=== PATIENT | female | born 1980 | race Caucasian/White ===

== ENCOUNTER → 2020-09-15 09:52 | Outpatient (CLI) | payer OTHER, SELFPAY ==
[2020-09-15 11:15] LABS: Hematocrit 43.6 % (36-46); Hemoglobin 14.5 g/dL (12.0-16.0); Mean Corpuscular HGB Conc 33.2 % (30-36); Mean Corpuscular Hemoglobin 30.3 PG (26-34); Mean Corpuscular Volume 91.1 fL (80-100); Platelet Count 303 X10^3/uL (150-400); Red Blood Cell Count 4.79 X10^6/uL (4.0-5.2); Red Cell Distribution Width 12.6 % (11.6-14.8); White Blood Cell Count 7.7 X10^3/uL (4.5-11.0)
[2020-09-15 11:47] LABS: Alanine Aminotransferase 31 IU/L (<35); Albumin 4.4 g/dL (3.5-5.0); Albumin Globulin Ratio 1.8 (1.0-2.8); Alkaline Phosphatase 60 U/L (38-126); Aspartate Aminotransferase 27 IU/L (14-36); BUN Creatinine Ratio 19.1 (6-22); Bilirubin Total 0.8 mg/dL (0.2-1.3); Blood Urea Nitrogen 13 mg/dL (7-17); Calcium 9.1 mg/dL (8.4-10.2); Carbon Dioxide 27 mmol/L (22-32); Chloride 107 mmol/L (98-107); Cholesterol 172 mg/dL (140-199); Estimated Glomerular Filt Rate > 60.0 mL/min (>60); Globulin 2.5 g/dL (1.7-4.1); Glucose 92 mg/dL (70-100); HDL Cholesterol 87 mg/dL (40-60); HEMOLYSIS < 15 (0-50); LDL Cholesterol Calculated 70 mg/dL (<100); Potassium 4.8 mmol/L (3.4-5.1); Sodium 138 mmol/L (137-145); Total Protein 6.9 g/dL (6.3-8.2); Triglycerides 73 mg/dL (35-150)
== END ==
PROVIDERS: Family Provider Family Medicine; PCP Nurse Practitioner Family; Referring Provider Nurse Practitioner Family; Visit Provider Nurse Practitioner Family
DX: Z00.00 Encounter for general adult medical examination without abnormal findings (principal); Z13.6 Encounter for screening for cardiovascular disorders
CPT/HCPCS: 36415; 80053; 80061; 85027

== ENCOUNTER 2021-05-14 06:58 | Emergency (ER) | payer OTHER, SELFPAY ==
[2021-05-14] VITALS (11 sets, daily range): BP systolic 118–129; BP diastolic 60–80; PULSE 47–63; RESP 16–29; TEMP 36.8; O2SAT 95–100; BMI 30.1
--- NOTE | 2021-05-14 07:00 | DI.RAD.S_ITS ---
PROCEDURE: XR CHEST 1V INDICATIONS: chest pain TECHNIQUE: One view of the chest was acquired. COMPARISON: [facility], , CHEST 2 VIEW, 01/05/2018, 12:56. FINDINGS: Surgical changes and devices: None. Lungs and pleura: Lungs are clear. No pleural effusions or pneumothorax. Mediastinum: Mediastinal contours appear normal. Heart size is normal. Bones and chest wall: No suspicious bony lesions. Overlying soft tissues appear unremarkable. IMPRESSION: No acute disease. Dictated by: Steve Brady M.D. on 05/14/2021 at 8:51 Approved by: Steve Brady M.D. on 05/14/2021 at 8:52
--- NOTE | 2021-05-14 07:15 | ED_ITS ---
HPI - Chest Pain General Chief Complaint: Chest Pain Stated Complaint: chest pain Time Seen by Provider: 05/14/21 07:00 Source: patient and other (girlfriend) Mode of arrival: Ambulatory Limitations: no limitations History of Present Illness HPI narrative: This is a 41-year-old female comes emergency department with sudden onset anterior chest pain on the left side that started 30 minutes prior to arrival. Patient states almost completely resolved. She described it is tender still but initially it was a stabbing sensation with something sitting on her chest. Patient states that she did feel diaphoretic, sort of dizzy and lightheaded but did not have syncope. She felt shaky. She denies any nausea or vomiting. She did feel little bit of shortness of breath. She denies any radiation of her pain to her neck, back or extremities or belly. 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 She takes citalopram for mental health, she uses tobacco daily. She denies any surgical history. 1-2 alcoholic drinks most days and THC. She has a family history significant for brother with a blood vessel to his heart exploding from her description and further discussion probably a coronary artery aneurysm. She states herself, her brother's children all had workups which include at least an EKG after this occurred. She had two grandparents who from cardiac issues. No other known pulmonary or embolic history. Related Data Home Medications Medication Instructions Recorded Confirmed cholecalciferol (vitamin D3) 125 5,000 unit PO DAILY PRN 03/16/19 09/12/20 mcg (5,000 unit) capsule ibuprofen 200 mg tablet 800 mg PO BID PRN tab 03/16/19 09/12/20 polysaccharide iron complex 200 mg 200 mg PO ONCE PRN cap 03/16/19 09/12/20 iron capsule Previous Rx's Medication Instructions Recorded albuterol sulfate 90 mcg/actuation 1 puff INHALATION Q6H PRN #6.7 gram 10/30/18 aerosol inhaler citalopram 40 mg tablet 40 mg PO QDAY #90 tab 05/08/21 Allergies Allergy/AdvReac Type Severity Reaction Status Date / Time blueberry Allergy Severe Throat Verified 05/14/21 07:28 swelling and difficulty breathing Review of Systems Review of Systems ROS Unobtainable: All systems reviewed & are unremarkable except as noted in HPI and below Patient History Medical History BMI 30.0-30.9,adult Encounter for wellness examination in adult (08/2020) Social History Smoking Status: Current some day smoker Tobacco: How many years used: 20 quit status: considering quitting (currently using the patch) second hand exposure: No alcohol intake: current (2 beers, 3x/wk) substance use type: does not use Smoking Status: Current some day smoker tobacco type: vaping alcohol intake frequency: 0-2 drinks per day Substance Use Type: does not use Exam Narrative Exam Narrative: GENERAL: Alert and oriented x three, well-nourished female in mild distress. HEENT: Head normocephalic, atraumatic, EOMI, pupils reactive, face symmetric, moist mucous membranes NECK: Supple, full range of motion CARDIOVASCULAR: Regular rate and rhythm without murmurs, rubs or gallops. Reproducible chest pain at the left sternal border. No rash or other skin changes noted RESPIRATORY: Breath sounds equal bilaterally, no wheezes rales or rhonchi. ABDOMEN: Soft, nontender. Normoactive bowel sounds all 4 quadrants. No guarding or rebound, rigidity, no mass : No CVA tenderness EXTREMITIES: Normal range of motion. Neurovascularly intact NEUROLOGICAL: Cranial nerves II through XII grossly intact. Moving all extremities SKIN: Warm, dry, no petechiae, no rashes or lesions. Initial Vital Signs Initial Vital Signs: Vital Signs Temperature 98.2 F 05/14/21 07:00 Pulse Rate 63 05/14/21 07:00 Respiratory Rate 20 05/14/21 07:00 Blood Pressure 122/60 05/14/21 07:00 Pulse Oximetry 95 05/14/21 07:00 Scores HEART Score Heart Score history: Moderately Suspicious Heart Score EKG: Normal Heart Score Age: < 45 years old Heart Score risk factors: 1-2 risk factors Heart Score troponin: < or = to normal limit Heart Score Total: 2 Course Orders Ordered: Discontinued Medications Aspirin (Aspirin 81 Mg Chew Tab) 324 mg PO NOW ONE Stop: 05/14/21 07:18 Last Admin: 05/14/21 07:23 Dose: 324 mg Documented by: KGALLAG Sodium Chloride (Normal Saline 0.9%) 1,000 mls @ 150 mls/hr IV CONT ADOLFO Last Infusion: 05/14/21 10:27 Dose: 0 mls/hr Documented by: Admin: 05/14/21 09:37 Dose: 150 mls/hr Documented by: AVERYONER Vital Signs Vital signs: Vital Signs - 8 hr 05/14/21 07:00 Temperature 98.2 F Pulse Rate 63 Respiratory Rate 20 Blood Pressure 122/60 Pulse Oximetry 95 MDM - Chest Pain Lab Data Attestation: I reviewed the patient's lab results. Result diagrams: 05/14/21 07:16 05/14/21 07:16 Labs: Lab Results 05/14/21 05/14/21 05/14/21 Range/Units 07:16 07:16 07:55 WBC 8.6 (4.5-11.0) X10^3/uL RBC 4.53 (4.0-5.2) X10^6/uL Hgb 13.4 (12.0-16.0) g/dL Hct 39.6 (36-46) % MCV 87.6 (80-100) fL MCH 29.6 (26-34) PG MCHC 33.8 (30-36) % RDW 12.7 (11.6-14.8) % Plt Count 308 (150-400) X10^3/uL Neut % (Auto) 62.4 (50-75) % Lymph % (Auto) 24.4 L (25-40) % [place] % (Auto) 4.9 (3-14) % Eos % (Auto) 7.0 H (2-4) % Baso % (Auto) 1.3 (0-2) % Neut # (Auto) 5400 (0119-9638) /uL Lymph # (Auto) 2100 (3368-8683) /uL [place] # (Auto) 400 (0-900) /uL Eos # (Auto) 600 H (0-450) /uL Baso # (Auto) 100 (0-100) /uL D-Dimer < 200 (<230) ng/mL Sodium 138 (137-145) mmol/L Potassium 4.1 (3.4-5.1) mmol/L Chloride 107 (98-107) mmol/L Carbon Dioxide 22 (22-32) mmol/L BUN 16 (7-17) mg/dL Creatinine 0.75 (0.52-1.04) mg/dL Estimated GFR > 60.0 (>60) mL/min BUN/Creatinine Ratio 21.3 (6-22) Glucose 97 (70-100) mg/dL Calcium 9.0 (8.4-10.2) mg/dL Total Bilirubin 0.2 (0.2-1.3) mg/dL AST 23 (14-36) IU/L ALT 21 (<35) IU/L Alkaline Phosphatase 49 (38-126) U/L Total Creatine Kinase 112 (30-135) U/L CK-MB (CK-2) 0.61 (<2.37) ng/mL CK-MB (CK-2) Rel Index 0.5 L (1.5-5.0) % Troponin I < 0.012 (0.01-0.034) ng/mL Total Protein 6.4 (6.3-8.2) g/dL Albumin 4.0 (3.5-5.0) g/dL Globulin 2.4 (1.7-4.1) g/dL Albumin/Globulin Ratio 1.7 (1.0-2.8) Lipase 219 (23-300) U/L 05/14/21 Range/Units 09:13 WBC (4.5-11.0) X10^3/uL RBC (4.0-5.2) X10^6/uL Hgb (12.0-16.0) g/dL Hct (36-46) % MCV (80-100) fL MCH (26-34) PG MCHC (30-36) % RDW (11.6-14.8) % Plt Count (150-400) X10^3/uL Neut % (Auto) (50-75) % Lymph % (Auto) (25-40) % [place] % (Auto) (3-14) % Eos % (Auto) (2-4) % Baso % (Auto) (0-2) % Neut # (Auto) (0409-7984) /uL Lymph # (Auto) (8413-6149) /uL [place] # (Auto) (0-900) /uL Eos # (Auto) (0-450) /uL Baso # (Auto) (0-100) /uL D-Dimer (<230) ng/mL Sodium (137-145) mmol/L Potassium (3.4-5.1) mmol/L Chloride (98-107) mmol/L Carbon Dioxide (22-32) mmol/L BUN (7-17) mg/dL Creatinine (0.52-1.04) mg/dL Estimated GFR (>60) mL/min BUN/Creatinine Ratio (6-22) Glucose (70-100) mg/dL Calcium (8.4-10.2) mg/dL Total Bilirubin (0.2-1.3) mg/dL AST (14-36) IU/L ALT (<35) IU/L Alkaline Phosphatase (38-126) U/L Total Creatine Kinase (30-135) U/L CK-MB (CK-2) (<2.37) ng/mL CK-MB (CK-2) Rel Index (1.5-5.0) % Troponin I < 0.012 (0.01-0.034) ng/mL Total Protein (6.3-8.2) g/dL Albumin (3.5-5.0) g/dL Globulin (1.7-4.1) g/dL Albumin/Globulin Ratio (1.0-2.8) Lipase (23-300) U/L Point of Care Testing Test Results Negative Glucose POC 95 Urine Dip Bedside Urine Glucose Negative Bedside Urine Bilirubin - Negative Bedside Urine Ketone - Negative Urine Specific [place] 1.020 Bedside Urine Occult Blood - Negative Bedside Urine pH 6 Bedside Urine Protein - Negative Bedside Urine Urobilinogen - Negative Bedside Urine Nitrite - Negative Bedside Urine Leukocytes - Negative Esterase Imaging Data Chest x-ray: Radiologist's Impression: No active disease in the chest noted. ECG Data Attestation: I personally reviewed and interpreted this ECG as follows: Prior ECG tracings: not available for review Interpretation: Sinus bradycardia rate of 53 NC 148 QRS 80 QTC 418. Inverted P wave and T-wave in 3. No other EKG changes appreciated. Sinus bradycardia rate of 47 NC 138, QRS is 78 QTC [address]. No acute ST changes noted. Suspect lead flipped V1 and V3. MDM Narrative Medical decision making narrative: lab repeat troponin was initially done on original blood. then patient drawn and actual repeat troponin, 0.012. Verfied with lab this was the second troponin drawn. Patient comes in today with a short episode of anterior chest pain which is reproducible on exam. Patient's only risk factors are tobacco use as well as a family history of her brother having an aneurysm possibly coronary artery but possibly aortic. Patient and I discussed today's findings which show no acute EKG changes, troponin negative x2 the normal chest x-ray and ddimer. Discussed with patient no signs of acute coronary syndrome at this time, no other obvious pulmonary emboli or vascular findings noted. Discussed with patient she had a screening EKG but no their further evaluation. After discussion she feel comfortable returning home we discussed would probably be appropriate for to have some additional screening such as echo or even angiography with her brother's history. Patient states she will follow-up with her primary care and defers referral to Cardiology. Discharge Plan Departure Patient Disposition: Home Clinical Impression: Chest pain Instructions: DI for Chest Pain Activity Restrictions/Additional Instructions: Follow up with your physician. Discuss your family history, they may wish to refer you to cardiology for further evaluation or additional workup. Your workup today does not show any acute findings with your EKG and labs as well as chest x-ray but this does not completely rule out any cardiac issues, I would recommend follow up. Please return if you have new or worsening symptoms, persistent chest pain, shortness of breath, lightheadedness or passing out, persistent vomiting, black or bloody stools or other new or concerning symptoms. Prescriptions: No Action cholecalciferol (vitamin D3) 5,000 unit capsule 5,000 unit PO DAILY PRNRF: 0 EZFE 200 200 mg iron capsule 200 mg PO ONCE PRNRF: 0 ibuprofen 200 mg tablet 800 mg PO BID PRNRF: 0 albuterol sulfate 90 mcg/actuation HFA aerosol inhaler 1 puff INHALATION Q6H PRN (Reason: shortness of breath or wheezing) Qty: 6.7 RF: 5 citalopram [Celexa] 40 mg tablet 40 mg PO QDAY Qty: 90 RF: 0 Referrals: Martinez Ospina ARNP [Primary Care Provider] -
[2021-05-14] MEDS: ASPIRIN 81 MG CHEW TAB 324 MG PO (07:23)
[2021-05-14 07:28] LABS: Add Manual Diff / Slide Review NO; Basophils Absolute Auto 100 /uL (0-100); Basophils Percent Auto 1.3 % (0-2); Eosinophils Absolute Auto 600 /uL (0-450); Hematocrit 39.6 % (36-46); Hemoglobin 13.4 g/dL (12.0-16.0); Lymphocytes Absolute Auto 2100 /uL (1100-4500); Lymphocytes Percent Auto 24.4 % (25-40); Mean Corpuscular HGB Conc 33.8 % (30-36); Mean Corpuscular Hemoglobin 29.6 PG (26-34); Mean Corpuscular Volume 87.6 fL (80-100); Monocytes Absolute Auto 400 /uL (0-900); Monocytes Percent Auto 4.9 % (3-14); Neutrophils Absolute Auto 5400 /uL (1500-7000); Neutrophils Percent Auto 62.4 % (50-75); Platelet Count 308 X10^3/uL (150-400); Red Blood Cell Count 4.53 X10^6/uL (4.0-5.2); Red Cell Distribution Width 12.7 % (11.6-14.8); White Blood Cell Count 8.6 X10^3/uL (4.5-11.0)
[2021-05-14 07:37] LABS: Alanine Aminotransferase 21 IU/L (<35); Albumin Globulin Ratio 1.7 (1.0-2.8); Alkaline Phosphatase 49 U/L (38-126); Aspartate Aminotransferase 23 IU/L (14-36); BUN Creatinine Ratio 21.3 (6-22); Bilirubin Total 0.2 mg/dL (0.2-1.3); Blood Urea Nitrogen 16 mg/dL (7-17); Carbon Dioxide 22 mmol/L (22-32); Chloride 107 mmol/L (98-107); Creatine Kinase 112 U/L (30-135); Estimated Glomerular Filt Rate > 60.0 mL/min (>60); Globulin 2.4 g/dL (1.7-4.1); Glucose 97 mg/dL (70-100); HEMOLYSIS < 15 (0-50); Lipase 219 U/L (23-300); Potassium 4.1 mmol/L (3.4-5.1); Sodium 138 mmol/L (137-145); Total Protein 6.4 g/dL (6.3-8.2)
[2021-05-14 07:49] LABS: Troponin I < 0.012 ng/mL (0.01-0.034)
[2021-05-14 07:52] LABS: CKMB % Relative Index 0.5 % (1.5-5.0); Creatine Kinase MB 0.61 ng/mL (<2.37)
[2021-05-14 08:14] LABS: D Dimer < 200 ng/mL (<230)
[2021-05-14] MEDS: SODIUM CHLORIDE 0.9% 1,000 ML 150 ML IV (09:37)
--- NOTE | 2021-05-14 10:28 | PC.NURSE ---
NS infusion complete, Dr. Gu aware.
[2021-05-14 10:54] LABS: Troponin I < 0.012 ng/mL (0.01-0.034)
== END 2021-05-14 11:10 | disposition home or self-care (01) ==
PROVIDERS: Emergency Provider Emergency Medicine; Family Provider Family Medicine; PCP Nurse Practitioner Family
DX: R07.9 Chest pain, unspecified (principal)
CPT/HCPCS: 36415; 71045; 80053; 81003; 81025; 82550; 82553; 82962; 83690; 84484; 85025; 85379; 93005; 93010; 96360; 99284; 99285

== ENCOUNTER → 2021-06-06 10:13 | Outpatient (CLI) | payer OTHER, SELFPAY ==
[2021-06-06 11:34] LABS: COVID19 -Nasal RAPID Negative (Negative)
== END ==
PROVIDERS: Family Provider Family Medicine; PCP Nurse Practitioner Family; Visit Provider Physician Assistant
DX: Z01.812 Encounter for preprocedural laboratory examination (principal); Z20.822 Contact with and (suspected) exposure to COVID-19
CPT/HCPCS: 87635

== ENCOUNTER → 2021-06-07 13:19 | Outpatient (CLI) | payer OTHER, SELFPAY ==
--- NOTE | 2021-06-07 14:33 | PM.TREADMILL ---
Cardiac Stress Test Report Referral & Results Date Patient Seen: 06/07/21 Requesting provider: Martinez Ospina Indication: chest pain Rest ECG: unremarkable Procedure Note: Today following both written and verbal informed consent, the patient was exercised according to a standard Aaron protocol. The patient exercised for a total of 10 minutes 5 seconds achieving a maximum heart rate of 179. Patient's maximum systolic blood pressure was 176. This was an estimated 12.8 MET's. there are no ST-T segment changes identified Normal heart rate and blood pressure response to exercise Function aerobic impairment rates about -10% on the active scale Impression: no evidence of ischemia. Excellent exercise capacity. Please note: Actual ECG tracings can be found in the PACS system.
== END ==
PROVIDERS: Family Provider Family Medicine; PCP Nurse Practitioner Family; Referring Provider Nurse Practitioner Family; Visit Provider Nurse Practitioner Family
DX: R07.89 Other chest pain (principal)
CPT/HCPCS: 93016; 93017; 93018

== ENCOUNTER → 2022-04-04 14:09 | Outpatient (CLI) | payer OTHER, SELFPAY ==
[2022-04-04 16:54] LABS: HIV 1 & 2 Ab/Ag 4th Gen Combo NEGATIVE (NEGATIVE); Hep C Virus Ab w/Reflex Quant NEGATIVE s/c (NEGATIVE); Hepatitis B Surface Antigen NEGATIVE s/c (NEGATIVE)
[2022-04-04 19:45] LABS: Free T4, Direct Thyroxine 0.95 ng/dL (0.78-2.19)
[2022-04-04 19:59] LABS: TSH w/ Reflex to FT4 1.45 uIU/mL (0.47-4.68)
[2022-04-05 08:08] LABS: RPR Screen Non Reactive (Non Reactive)
[2022-04-05 08:08] LABS: Candida species Negative (Negative); Gardnerella vaginalis Negative (Negative); Trichomoas vaginalis Negative (Negative)
[2022-04-07 04:36] LABS: Chlamydia trachomatis Negative (Negative); Mycoplasma genitalium Negative (Negative); Neisseria gonorrhoeae Negative (Negative)
== END ==
PROVIDERS: Obstetrics & Gynecology; Family Provider Family Medicine; PCP Nurse Practitioner Family; Referring Provider Nurse Practitioner Family; Visit Provider Nurse Practitioner Family
DX: Z11.3 Encounter for screening for infections with a predominantly sexual mode of transmission (principal); Z00.00 Encounter for general adult medical examination without abnormal findings
CPT/HCPCS: 36415; 84439; 84443; 86592; 86803; 87340; 87389; 87480; 87491; 87510; 87563; 87591; 87660

== ENCOUNTER → 2022-05-10 15:50 | Outpatient (CLI) | payer OTHER, SELFPAY ==
[2022-05-10 17:23] LABS: COVID19 -Nasal RAPID Negative (Negative)
== END ==
PROVIDERS: Family Provider Family Medicine; PCP Pediatrics; Visit Provider Obstetrics & Gynecology
DX: Z20.822 Contact with and (suspected) exposure to COVID-19 (principal); Z01.812 Encounter for preprocedural laboratory examination
CPT/HCPCS: 87635

== ENCOUNTER 2022-05-13 15:18 | Day surgery (SDC) | payer OTHER, SELFPAY ==
[2022-05-08 10:51] VITALS: BMI 30.9
--- NOTE | 2022-05-13 | PATH_ITS ---
[facility] Accession Number: [id number] . 01 Material submitted: . PART A: labium minus - LEFT LABIA MINORA PART B: groin - RIGHT GROIN FOLD . 01 Diagnosis: A. Left Labia Minora, Biopsy: Intradermal melanocytic nevus and focal area with verrucous surface changes. (Please see comment.) . B. 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 (Please see comment.) [facility] 05/20/2022 1222 Local . 01 Comment: A. While the verrucous surface changes could be secondary to persistent rubbing, the differential diagnosis could include, in the proper clinical setting, a focal condyloma acuminatum. . B. Verrucous features are noted. P16 immunohistochemical stain performed shows full thickness positive staining. Ki-67 immunostain performed shows positive nuclear staining through the entire thickness of the epidermis in areas. Initial and deeper levels were examined in an effort to better define this process. Clinicopathological correlation is advised for definitive diagnosis. . The histologic material was reviewed with Dr. Romeo Mcgarry, who concurs. . 01 Electronically signed: . Cheryl Mosley MD, Dermatopathologist NPI- [id number] . 01 Gross description: . Part A: LEFT LABIA MINORA: Received in formalin is 1 piece of SKIN SHAVE measuring 0.4 x 0.3 x 0.2 cm which is inked, bisected and submitted in toto in 1 cassette. Part B: RIGHT GROIN FOLD: Received in formalin is 1 piece of SKIN SHAVE measuring 1.5 x 0.7 x 0.3 cm which is inked, serially sectioned and submitted in toto in 1 cassette. /CPE 05/14/2022 0603 Local . 01 Pathologist provided ICD-10: D22.9, D04.9 . 01 CPT . 686144, 950869, L41142, P32954 Specimen Comment: A courtesy copy of this report has been sent to [phone] Performed at: 01 [facility] [address] [place] [address], [place], [place] [id number] MD Eric Alejandra MD Phone: [phone]
[2022-05-13 15:48] VITALS: BP 112/75; PULSE 64; RESP 16; TEMP 36.9; O2SAT 99; BMI 30.9
[2022-05-13] MEDS: LACTATED RINGERS 1,000 ML 100 ML IV (16:02)
--- NOTE | 2022-05-13 16:14 | P.HPOB_ITS ---
History of Present Illness History of Present Illness Reason for admission: other (scheduled vulvar biopsy in OR) Narrative: Mary Rubin is a 42 year old P1 with two vulvar lesions, presenting for scheduled vulvar biopsy under IV sedation. She reports no changes in her symptoms or medical history as previously described. We discussed removal of one lesion on the left labia and one lesion in the right groin fold, with closure with dissolvable suture. We discussed the risks of bleeding and wound infection and the benefit of definitive management, with no good non-surgical alternative. All questions were answered, informed consent was obtained, and consent was signed. [facility] Medical History Atypical chest pain BMI 30.0-30.9,adult Encounter for wellness examination in adult (08/2020) Surgical History History of endometrial ablation Social History household members: significant other Smoking Status: Current some day smoker Tobacco: How many years used: 20 quit status: considering quitting (currently using the patch) second hand exposure: No alcohol intake: former substance use type: does not use Meds Home Medications and Allergies Home Medications Medication Instructions Recorded Confirmed Type albuterol sulfate 90 mcg/actuation 1 puff inhalation Q6H PRN 10/30/18 05/13/22 Rx aerosol inhaler shortness of breath or wheezing #6.7 grams ibuprofen 200 mg tablet 800 mg PO BID PRN Pain 03/16/19 05/13/22 History citalopram 40 mg tablet (Celexa) 40 mg PO QDAY #90 tabs 08/16/21 05/13/22 Rx Allergies Allergy/AdvReac Type Severity Reaction Status Date / Time blueberry Allergy Severe Throat Verified 04/04/22 13:43 swelling and difficulty breathing Review of Systems Constitutional Constitutional: Reports system reviewed and no additional complaints, except as documented Gastrointestinal Gastrointestinal: Reports system reviewed and no additional complaints, except as documented Genitourinary Genitourinary: Reports as per HPI Exam Vital Signs (past 8 hours): - 05/13/22 15:48 Temperature 98.4 F Pulse Rate 64 Respiratory Rate 16 Blood Pressure 112/75 Pulse Oximetry 99 Oxygen Delivery Method Room Air Oxygen Delivery Method Room Air Const General: cooperative, healthy appearing, comfortable and well groomed Resp Effort & Inspection: normal respiratory effort Auscultation: clear to auscultation bilaterally Cardio Rate: regular rate Rhythm: regular rhythm Assessment & Plan Assessment and plan (1) Vulvar lesion: Problem details: This patient is admitted for removal of two vulvar lesions in the operating room. Informed consent was obtained as above, and all questions were answered. She will be prepped for the procedure per the usual protocol. Status: Acute Time Spent With Patient Critical Care time: I spent a total of [] minutes of critical care time on this patient's care today; this time is exclusive of procedural time.
[2022-05-13] MEDS: BUPIVACAINE 0.5% (PF) 30 ML, EPINEPHrine 0.15 MG INJ (16:50)
--- NOTE | 2022-05-13 16:50 | SUR.OPER ---
Lithotomy on padded OR bed, head on pillow, arms secured on padded arm boards at <90 degrees abduction. Legs secured in padded yellow fins stirrups.
[2022-05-13] MEDS: BACITRACIN OINT 0.9 GM PCKT 1 APPLIC TOP (16:59)
--- NOTE | 2022-05-13 17:04 | P.OP_ITS ---
Procedure & Clinicians Procedure: vulvar lesion excision Same procedure as scheduled: Yes Indications: vulvar lesions Surgeon: Cherelle Dickinson Click Yes if Unassisted: Yes Anesthesia Type: MAC +/- Operative Notes Findings: vulvar lesion on left labia minora and right groin fold Closure Type: primary Specimen(s): other (left labia minora, right groin fold lesions) Estimated Blood Loss (mL): 5 Procedure in detail: After informed consent was obtained, the patient was transferred to the operating room. IV sedation was obtained and she was placed in the dorsal lithotomy position. The previously identified lesions were prepped with betadine x3 and infiltrated with a total of 8ccs 1% lidocaine with epinephrine. A 4mm punch biopsy was used to remove the left labial mole, with good hemostasis achie cinda with pressure. Attention was then turned to the right groin fold, where the lesion was noted to be 2cm x 1cm. An elliptical skin incision was marked with a sterile marker and incised with a scalpel, and the lesion elevated and removed a shallowly as possible given the location. Good hemostasis was achieved with pressure. An interrupted suture of 3-0 vicryl was used subcuticularly to remove tension from the skin, and the skin was closed in a running fashion with 4-0 monocryl. The sites were prepped with bacitracin and the larger covered in a bandage, and counts were correct x2. The patient was taken to PACU in stable condition and tolerated the procedure well. IVF: 1L LR Complications: none Post-operative Condition: stable Disposition: PACU Plan for aftercare: Discharge home with routine postop care
[2022-05-13 17:10] VITALS: BP 112/76; PULSE 71; RESP 14; TEMP 36.9; O2SAT 100
[2022-05-13 17:15] VITALS: BP 107/70; PULSE 76; RESP 17; O2SAT 100
[2022-05-13] MEDS: ACETAMINOPHEN 325 MG TABLET 975 MG PO (17:20)
[2022-05-13 17:21] VITALS: BP 108/72; PULSE 60; RESP 18; O2SAT 100
--- NOTE | 2022-05-13 17:24 | SUR.PHASEI ---
Stable PACU stay, to opd with Sahra.
[2022-05-13 17:30] VITALS: BP 112/72; PULSE 64; RESP 16; O2SAT 100
== END 2022-05-13 17:40 | disposition home or self-care (01) ==
PROVIDERS: Family Provider Family Medicine; PCP Pediatrics; Referring Provider Obstetrics & Gynecology; Visit Provider Obstetrics & Gynecology
PROC: (CPT 57410; principal; 2022-05-13 16:00)
DX: D22.9 Melanocytic nevi, unspecified (principal); D04.9 Carcinoma in situ of skin, unspecified; J45.909 Unspecified asthma, uncomplicated; F17.290 Nicotine dependence, other tobacco product, uncomplicated
CPT/HCPCS: 11422; 11104; 81025; 82962; J0171; J1100; J2250; J2405; J2704; J3010